=== PATIENT | male | born 2000 | race Caucasian/White ===

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

== ENCOUNTER 2024-06-15 11:38 | Emergency (ER) | payer OTHER ==
[~2024-06-15] VITALS: Ht 177.8 cm; Wt 86.4 kg
[2024-06-15] MEDS: LIDOCAINE 1% MDV 20ML VIAL SC ONE (13:40)
[2024-06-15] MEDS: KETOROLAC 30 MG/ML 1ML VIAL IM ONE (13:40)
[2024-06-15] MEDS: BOOSTRIX VACCINE (TETANUS/DIPHTH/ACEL. PERTUSSIS) 0.5ML SYR IM ONE (13:41)
[2024-06-15] MEDS ORDERED: CEPH500C PO (13:44)
[2024-06-15 13:46] VITALS: BP 141/78; O2SAT 97
[2024-06-15] MEDS ORDERED: OXYC-517 PO (13:49)
[2024-06-15 13:54] VITALS: TEMP 97.3
== END 2024-06-15 14:01 | disposition home or self-care (01) ==
LOC: M ED 11:38 → EDBD 11:38 → M ED 14:01
DX: S68.611A Complete traumatic transphalangeal amputation of left index finger, initial encounter (principal); W31.2XXA Contact with powered woodworking and forming machines, initial encounter; J45.909 Unspecified asthma, uncomplicated; F17.200 Nicotine dependence, unspecified, uncomplicated; Y92.9 Unspecified place or not applicable; Y93.H3 Activity, building and construction; Y99.0 Civilian activity done for income or pay; Z23 Encounter for immunization

== ENCOUNTER 2024-06-22 06:14 | Day surgery (SDC) | payer OTHER ==
[~2024-06-22] VITALS: Ht 177.8 cm; Wt 91.6 kg
[~2024-06-22 06:14] MED LIST changes: +CEPH500C PO; +OXYC-517 PO
[2024-06-22] MEDS ORDERED: MIDAZOLAM INJ 2MG/2ML VIAL As Ordered ONE (06:27)
[2024-06-22] MEDS ORDERED: fentaNYL 100 MCG/2 ML INJECTION As Ordered ONE (06:29)
[2024-06-22] MEDS ORDERED: propofoL 500 MG/50 ML VIAL As Ordered ONE (06:30)
[2024-06-22] MEDS ORDERED: VASOPRESSIN INJ 20UNITS/ML 1ML VIAL As Ordered ONE (06:31)
[2024-06-22] MEDS ORDERED: dexmedeTOMIDine (4MCG/ML)200MCG/50ML BTL (PRECEDEX) As Ordered ONE (06:31)
[2024-06-22] MEDS ORDERED: LIDOCAINE 2% 100MG/5ML SDV (FOR ANES.) As Ordered ONE (06:31)
[2024-06-22] MEDS ORDERED: ACETAMINOPHEN 1000MG 100ML IV BAG As Ordered ONE (06:37)
[2024-06-22] MEDS ORDERED: NS 1,000 ML IV SCH (06:50)
[2024-06-22] MEDS ORDERED: ceFAZolin 2 GM/D5W 50 ML IV BAG As Ordered ONE (07:51)
[2024-06-22] MEDS: ceFAZolin SOD 2 GM in IV 1 EA IV ONE (07:52)
[2024-06-22] MEDS: BACITRACIN OINTMENT 30GM TUBE As Ordered ONE (08:45)
[2024-06-22] MEDS ORDERED: PERCOCET PO (09:04)
[2024-06-22 09:34] VITALS: BP 138/72; TEMP 97.2; O2SAT 100
[2024-06-23] MEDS ORDERED: IBUP200T46 PO (07:25)
== END 2024-06-22 10:21 | disposition home or self-care (01) ==
LOC: M SDC 06:14
PROVIDERS: ATTEND Orthopaedic Surgery Hand Surgery
DX: S68.611A Complete traumatic transphalangeal amputation of left index finger, initial encounter (principal); W31.2XXA Contact with powered woodworking and forming machines, initial encounter; Y92.9 Unspecified place or not applicable; Y99.0 Civilian activity done for income or pay; Y93.H3 Activity, building and construction; J45.909 Unspecified asthma, uncomplicated; F17.200 Nicotine dependence, unspecified, uncomplicated
CPT/HCPCS: 26952; 76000; 88305; J0131; J0665; J0690; J2250; J2598; J3010

== ENCOUNTER 2024-06-23 07:13 | Emergency (ER) | payer OTHER ==
[~2024-06-23] VITALS: Ht 177.8 cm; Wt 91.9 kg
[~2024-06-23 07:13] MED LIST changes: +PERCOCET PO
[2024-06-23] MEDS ORDERED: IBUP200T46 PO (07:25)
[2024-06-23] MEDS: KETOROLAC 60MG 2ML VIAL IM ONE (08:59)
[2024-06-23] MEDS: BACITRACIN OINTMENT 30GM TUBE TOP ONE (09:19)
[2024-06-23 10:11] VITALS: BP 131/73; TEMP 97.9; O2SAT 98
== END 2024-06-23 10:12 | disposition home or self-care (01) ==
LOC: M ED 07:13
DX: G89.18 Other acute postprocedural pain (principal); M79.642 Pain in left hand; Z89.022 Acquired absence of left finger(s); J45.909 Unspecified asthma, uncomplicated; Z79.1 Long term (current) use of non-steroidal anti-inflammatories (NSAID); Z79.2 Long term (current) use of antibiotics; Z79.899 Other long term (current) drug therapy
CPT/HCPCS: 96374; 99283; J1885

== ENCOUNTER → 2024-07-01 | Outpatient (CLI) | payer OTHER ==
[~2024-07-01] MED LIST changes: +IBUP200T46 PO
== END ==
LOC: M SOG 08:04
PROVIDERS: ATTEND Physician Assistant
DX: Z47.89 Encounter for other orthopedic aftercare (principal); M25.542 Pain in joints of left hand

== ENCOUNTER → 2024-08-08 | Outpatient (CLI) | payer OTHER ==
[~2024-08-08] MED LIST changes: -ADV250INH INH; +ADVA1AER9 INH
== END ==
LOC: M SOG 07:51
PROVIDERS: ATTEND Physician Assistant
DX: Z47.89 Encounter for other orthopedic aftercare (principal); M25.542 Pain in joints of left hand

== ENCOUNTER → 2024-11-08 | Outpatient (CLI) | payer OTHER | LOC: M SOG 07:46 | PROVIDERS: ATTEND Physician Assistant | DX: Z47.89 Encounter for other orthopedic aftercare (principal); M25.542 Pain in joints of left hand; Z89.022 Acquired absence of left finger(s) ==